=== PATIENT | male | born 1980 | race Caucasian/White ===

== ENCOUNTER 2016-07-23 16:37 | Emergency (ER) | payer SELFPAY ==
[~2016-07-23] VITALS: Ht 170.2 cm; Wt 86.4 kg
[2016-07-23 16:44] VITALS: BP 188/113; PULSE 84; TEMP 98.8
[2016-07-23] MEDS ORDERED: LATUDA20 MG PO (16:46)
[2016-07-23] MEDS ORDERED: PEN-VEE K500 MG PO (17:32)
[2016-07-23] MEDS ORDERED: NORCO 325 MG-51 TAB PO (17:32)
== END 2016-07-23 17:40 | disposition home or self-care (01) ==
LOC: COL.ER 16:37 → EDBD 16:55 → COL.ER 17:40
DX: K04.7 Periapical abscess without sinus (principal)

== ENCOUNTER 2021-08-20 03:20 | Emergency (ER) | payer OTHER ==
[~2021-08-20] VITALS: Ht 167.6 cm; Wt 81.8 kg
[~2021-08-20 03:20] MED LIST: INDOCIN 25MG CA25 MG PO; LATUDA20 MG PO; NORCO 325 MG-51 TAB PO; PEN-VEE K500 MG PO; PREDNISONE20 MG PO
[2021-08-20 03:37] VITALS: TEMP 98.4
[2021-08-20] MEDS ORDERED: INDOCIN50 MG PO (04:28)
[2021-08-20] MEDS ORDERED: COLCRYS0.6 MG PO (04:28)
[2021-08-20 05:56] VITALS: BP 157/102; PULSE 94
== END 2021-08-20 05:57 | disposition home or self-care (01) ==
LOC: COL.ER 03:20
DX: M10.9 Gout, unspecified (principal); Z79.899 Other long term (current) drug therapy; Z28.310 Unvaccinated for COVID-19
CPT/HCPCS: J7512

== ENCOUNTER 2021-09-08 13:49 | Emergency (ER) | payer OTHER ==
[~2021-09-08] VITALS: Ht 170.2 cm; Wt 84.1 kg
[~2021-09-08 13:49] MED LIST changes: +COLCRYS0.6 MG PO; +INDOCIN50 MG PO
[2021-09-08] MEDS ORDERED: PREDNISONE20 MG PO (14:06)
[2021-09-08 14:15] VITALS: BP 159/98; PULSE 80; TEMP 98
== END 2021-09-08 14:17 | disposition home or self-care (01) ==
LOC: COL.ER 13:49
DX: M10.9 Gout, unspecified (principal); Z28.310 Unvaccinated for COVID-19

== ENCOUNTER 2021-09-15 07:48 | Emergency (ER) | payer OTHER ==
[~2021-09-15] VITALS: Ht 170.2 cm; Wt 81.8 kg
[2021-09-15 07:48] VITALS: BP 151/100; TEMP 98.1
[2021-09-15] MEDS ORDERED: PREDNISONE10 MG PO (07:55)
[2021-09-15 08:31] LABS: BASO # 0.1 K/mm3 (0.0-0.2); BASO % 0.4 % (0.0-2.0); EOS # 0.4 K/mm3 (0.0-0.7); EOS % 2.8 % (0.0-4.0); GRAN # 9.3 K/mm3 (1.4-6.5); HEMATOCRIT 40.7 % (42.0-52.0); HEMOGLOBIN 13.9 g/dl (13.5-18.0); LYMPH % 21.4 % (20.0-51.0); MEAN CELL VOLUME 84 fl (80.0-100.0); MEAN CORPUSCULAR HEMOGLOBIN 29 pg (27-31); MEAN CORPUSCULAR HGB CONC 34 g/dl (33.0-37.0); MEAN PLATELET VOLUME 9.3 fl (7.4-10.4); MONO # 1.2 K/mm3 (0.1-0.6); MONO % 8.5 % (1.7-9.3); PLATELET COUNT 423 K/mm3 (130-400); RED BLOOD COUNT 4.83 M/mm3 (4.20-5.60); REDCELL DISTRIBUTION WIDTH-CV 13.9 % (11.5-14.5)
[2021-09-15 08:38] LABS: SYNOVIAL FLUID APPEARANCE HAZY; SYNOVIAL FLUID COLOR YELLOW
[2021-09-15 08:45] VITALS: PULSE 86
[2021-09-15 08:50] LABS: C-REACTIVE PROTEIN 7.4 mg/dL (0.00-0.50); CALCIUM 9.2 mg/dL (8.4-10.2); CREATININE, serum 1.04 mg/dL (0.72-1.25); POTASSIUM 3.9 mmol/L (3.5-4.5); URIC ACID 6.8 mg/dL (3.5-7.2)
[2021-09-15 08:59] LABS: ERYTHROCYTE SEDIMENTATION RATE 20 mm/hr (0-15)
[2021-09-15 09:15] LABS: SYNOVIAL FL. MONONUCLEAR 14.2 % (0-75); SYNOVIAL FLUID RBC 6000 /mm3 (0-0)
[2021-09-15 09:19] LABS: SYNOVIAL FLUID WBC 12302 /mm3 (200-600)
== END 2021-09-15 08:45 | disposition home or self-care (01) ==
LOC: COL.ER 07:48
PROVIDERS: Emergency Medicine
DX: M25.461 Effusion, right knee (principal); H10.9 Unspecified conjunctivitis; D72.829 Elevated white blood cell count, unspecified; Z28.310 Unvaccinated for COVID-19

== ENCOUNTER 2023-10-11 19:53 | Emergency (ER) | payer OTHER ==
[~2023-10-11] VITALS: Ht 167.6 cm; Wt 92.7 kg
[~2023-10-11 19:53] MED LIST changes: +AMOXICILLIN 8751 TAB PO; +PERCOCET 325 MG1 TA2 PO; +PREDNISONE10 MG PO
[2023-10-11 20:15] VITALS: TEMP 98
[2023-10-11] MEDS ORDERED: cloNIDine 0.1 MG TAB PO ONE ×2 (20:30→22:30)
[2023-10-11] MEDS ORDERED: amLODIPine 10 MG TAB PO ONE (21:45)
[2023-10-11] MEDS ORDERED: CATAPRES 0.1MG0.1 MG PO (22:39)
[2023-10-11 23:29] VITALS: BP 155/103; PULSE 78
== END 2023-10-11 23:35 | disposition home or self-care (01) ==
LOC: COL.ER 19:53
DX: I10 Essential (primary) hypertension (principal)